=== PATIENT | male | born 1945 ===

== ENCOUNTER 2021-11-24 01:11 | Outpatient (CLI) | payer MEDICARE, SELFPAY ==
--- NOTE | 2021-11-24 13:45 | DI.MRI_ITS ---
Exam(s) MR LUMBAR SPINE WO EXAM: MR LUMBAR SPINE WO CLINICAL HISTORY: PAIN IN LT LEG, M79.605. TECHNIQUE: Multiplanar multisequence MRI was performed. COMPARISON: No exams were available for comparison FINDINGS: MR examination lumbosacral spine was performed according to the usual protocol. No significant bony signal abnormality seen. There are changes of mild facet hypertrophy throughout the lumbar region. Conus medullaris appears intact. No significant findings from the T10-11 level through the L1-2 leve l, no evidence of disc herniation, central canal spinal stenosis, or neural foraminal stenosis. At L2-3, there is a mild disc bulge without evidence of disc herniation, central canal spinal stenosi s, or neural foraminal stenosis. At L3-4, there is a small right-sided lateral disc herniation which projects at and above the disc le jesse. No definite neural impingement although the right L4 nerve root could conceivably be impinged a t this site. No central canal spinal stenosis. No neural foraminal stenosis. At L4-5, there is a mild disc bulge without evidence of disc herniation, central canal spinal stenosi s, or neural foraminal stenosis. At L5-S1, there is no evidence of a disc herniation, central canal spinal stenosis, or neural foramin al stenosis. IMPRESSION: Small right lateral disc herniation at L3-4 as described above. No other significant findings. DATA REPOSITORY:
== END 2021-11-24 01:31 ==
PROVIDERS: Visit Provider Internal Medicine
DX: M79.605 Pain in left leg (principal); M51.26 Other intervertebral disc displacement, lumbar region
CPT/HCPCS: 72148